=== PATIENT | male | born 1985 | race Caucasian/White ===

== ENCOUNTER 2020-04-24 10:04 | Emergency (ER) | payer BC, SELFPAY ==
[2020-04-24 10:24] VITALS: BP 132/80; PULSE 96; RESP 16; TEMP 37; O2SAT 98; BMI 23.0
--- NOTE | 2020-04-24 12:03 | XR_ITS ---
WS: [id number] PORTABLE CHEST HISTORY: fevers, cough COMPARISON: 02/11/2013 Lungs are clear and well expanded. No pleural effusion or pneumothorax. Cardiac size: Normal. Mediastinum/Aorta: Normal mediastinum. No osseous abnormality seen. XR/XR chest 1V portable [id number] IMPRESSION: Unremarkable portable chest.
--- NOTE | 2020-04-24 12:06 | ED_ITS ---
HPI - General Adult General: Chief complaint: Nausea/Vomiting/Diarrhea Stated complaint: RECENT FEVER Time Seen by Provider: 04/24/20 10:08 Source: patient and family Mode of arrival: ambulatory Limitations: no limitations History of Present Illness: HPI narrative: Patient is a 34-year-old male who presents to ED today with multiple medical complaints. Patient tells me several days ago he was seen by his PCP Dr. Willard for not feeling well . At the time he was complaining of some upper abdominal pain, nausea, vomiting, diarrhea. He had recently been placed on some Bactrim for a possible abscess. Dr. Willard discontinued the Bactrim and told them it possibly could be some bad food exposure and prescribed the patient Zofran. Patient tells me since the visit he has continued to not improve. He was seen again by their office staff and had vitals performed which showed an oxygen saturation of 93%. Apparently they were concerned about this and sent patient to the emergency department for evaluation. Patient tells me he is no longer having diarrhea. He actually reports constipation stating he has not had a bowel movement in 3 days. He is still complaining of upper abdominal pain and describes as indigestion . He reports some dry heaving earlier this morning. Significant other with patient describes low-grade fevers mainly throughout his illness but has had a temperature as high as 101. He states his bilateral legs hurt. He complains of a headache and diffuse body aches/pains. They state Dr. Willard's office mentioned wanting him tested for COVID. Patient has no known PMH and currently takes no medications. Associated symptoms: Reports headache(s), malaise, nausea and vomiting; Deny chest pain, dyspnea, rash, palpitations or syncope Review of Systems Const: Reports: fever(s), chills, body aches, change in appetite, fatigue and malaise; Denies: change in weight Eyes: Denies: change in vision, blurry vision, photophobia, floaters or seeing flashes ENMT: Denies: throat pain, enlarged tonsils, odynophagia, swelling of lips/tongue, oral sores, dental pain, ear or mastoid pain, tinnitus, nasal discharge, nasal congestion or sinus pain Card: Denies: chest pain, palpitations, irregular heart rhythm, edema, swelling of feet/ankles, lightheadedness, syncope, pre-syncope, dyspnea on exertion, orthopnea, leg pain with exertion or acrocyanosis Resp: Reports: productive cough and chest congestion; Denies: dyspnea, non-productive cough, change in phlegm color or hemoptysis GI: Reports: abdominal pain, nausea, vomiting, diarrhea and constipation (x 3 days); Denies: hematemesis, fecal incontinence, rectal swelling, hematochezia, melena or white/light colored stool : Denies: flank pain, difficulty urinating, dysuria, urinary frequency, urinary urgency or urinary hesitancy Musc: Denies: neck pain, back pain, extremity pain (bilateral LEs), extremity swelling, joint pain or joint swelling Skin/Breast: Denies: rash Neuro: Reports: headache(s); Denies: numbness in extremities, weakness in extremities, sensory changes, lack of coordination, dizziness or Slurred speech present Physical Exam Const: COMMON NORMALS: average body habitus, patient oriented x3, no limitations, healthy appearing, alert and well nourished GENERAL APPEARANCE: cooperative ORIENTATION/CONSCIOUSNESS: Yes oriented to person, Yes oriented to place and Yes oriented to time OTHER: looks like he doesn't feel well HENMT: COMMON NORMALS: normocephalic, atraumatic, hearing grossly normal bilaterally, external ears normal, EAC's normal, TM's normal bilaterally, Normal external nose present, Normal nasal mucous membranes and turbinates present, moist oral mucous membranes, oropharynx normal, dentition normal and gingiva normal HEAD & SCALP: normal to inspection, normocephalic and atraumatic FACE & SINUS: normal facial exam and sinuses nontender NOSE: Normal external nose present and Normal nasal mucous membranes and turbinates present EXTERNAL EAR: Yes external ears normal EXTERNAL AUDITORY CANAL: EAC's normal TYMPANIC MEMBRANE: TM's normal bilaterally MOUTH: Normal oral and palatal mucosa present, lip normal and tongue normal THROAT: posterior oropharynx normal, tonsils normal and uvula midline Eye: COMMON NORMALS: Equal, round and reactive pupils present, EOMs intact bilaterally, conjunctivae normal and no scleral icterus CONJUNCTIVA: Yes conjunctivae normal PUPIL: Yes Equal, round and reactive pupils present Neck/C-Spine: COMMON NORMALS: full ROM, no lymphadenopathy and no meningeal signs Resp: COMMON NORMALS: normal respiratory effort and clear to auscultation bilaterally AUSCULTATION: clear to auscultation bilaterally Cardio: COMMON NORMALS: regular rate and regular rhythm RATE: regular rate RHYTHM: regular rhythm GI: COMMON NORMALS: Normal to inspection, nondistended, normoactive bowel sounds present, Soft to palpation, No hepatosplenomegaly present and no masses PALPATION: Yes Soft to palpation, Yes Tenderness to palpation present (GI) (mild epigastric) and Yes No hepatosplenomegaly present : COMMON NORMALS: Yes no CVA tenderness BLADDER/KIDNEY EXAM: Yes no CVA tenderness Back/Pelvis: COMMON NORMALS: no CVA tenderness Extremity: COMMON NORMALS: normal to inspection and full ROM GENERAL: Yes normal exam except as noted Neuro: MIGUEL COMA SCALE: document GCS findings [place] coma scale eye opening: Spontaneous [place] coma scale verbal response: Orientated Miguel coma scale motor response: Obey commands Miguel coma scale total score: 15 COMMON NORMALS: patient oriented x3, moves all extremities, no focal motor deficits, no sensory deficits noted and gait normal SENSORIUM/ORIENTATION: Yes alert, Yes oriented to person, Yes oriented to place and Yes oriented to time MENINGEAL SIGNS: Yes no meningeal signs Skin: COMMON NORMALS: no rashes or lesions noted GENERAL SKIN EXAM: no rashes or lesions noted Course Vital Signs: Vital signs: Vital Signs Temperature 98.6 F 04/24/20 10:24 Pulse Rate 88 04/24/20 15:16 Respiratory Rate 18 04/24/20 15:16 Blood Pressure 124/67 04/24/20 15:16 Pulse Oximetry 96 04/24/20 15:16 MDM - General Adult MDM Narrative: Medical decision making narrative: Patient's labs showing mild hyponatremia, mildly elevated LFTs, and thrombocytopenia which makes me highly suspicious for tickborne illness. Patient symptoms would be consistent with this diagnosis as well. I did go ahead and test patient for COVID. He is aware that tick panel and COVID testing will take 2 to 3 days to return. He was encouraged to quarantine until he gets negative COVID results. I will place patient on doxycycline at this time. Recommend close follow-up with Dr. Willard's office. Strict return to ED precautions given. Lab Data: Labs: Lab Results 04/24/20 04/24/20 04/24/20 Range/Units 12:22 12:28 12:28 WBC 5.5 (4.0-10.0) 10^3/ uL RBC 4.84 (4.1-5.3) 10^6/u L Hgb 15.2 (11.7-16.6) g/dL Hct 43.6 (42.0-52.0) % MCV 90.1 (80-94) fL MCH 31.4 (28.0-34.0) pg MCHC 34.9 (30.0-36.0) g/dL RDW 11.9 L (12.1-15.1) % Plt Count 101 L (130-400) 10^3/c mm MPV 11.6 H (7.4-10.4) fL Neut % (Auto) 52.8 % Lymph % (Auto) 32.8 % Carolina % (Auto) 13.1 % Eos % (Auto) 0.2 % Baso % (Auto) 0.4 % Neut # (Auto) 2.89 (1.8-7.7) 10^3/u L Lymph # (Auto) 1.8 (0.8-4.8) 10^3/u L Carolina # (Auto) 0.7 (0.2-0.9) 10^3/u L Eos # (Auto) 0.0 (0.0-0.8) 10^3/u L Baso # (Auto) 0.0 (0.0-0.1) 10^3/u L Nucleated RBC % (a uto) 0 % Nucleated RBCs # 0.0 /100WBC Sodium 127 L (136-145) mmol/L Potassium 3.8 (3.5-5.1) mmol/L Chloride 89 L (98-107) mmol/L Carbon Dioxide 24 (22-29) mmol/L Anion Gap 17.8 (5-19) BUN 12 (6-20) mg/dL Creatinine 0.7 (0.7-1.2) mg/dL GFR Calculation 129.1 (90-130) mL/min Glucose 114 (65-115) mg/dL Calculated Osmolal ity 261 L (285-295) mOsm/k g Lactic Acid (0.5-2.2) mmol/L Calcium 8.1 L (8.5-10.5) mg/dL Total Bilirubin 0.5 (0.15-1.2) mg/dL AST 41 H (0-40) U/L ALT 51 H (0-41) U/L Alkaline Phosphata se 53 (40-130) IU/L Creatine Kinase 40 (39-308) U/L C-Reactive Protein 46.9 H (0.0-4.9) mg/L Total Protein 7.0 (6.6-8.7) g/dL Albumin 3.9 (3.5-5.2) g/dL Globulin 3.1 (1.3-4.6) g/dL Lipase 18 (13-60) U/L Urine Color (Yellow) Urine Appearance (CLEAR) Urine pH (5-7) Ur Specific Gravit y (1.005-1.030) Urine Protein (Negative) Urine Glucose (UA) (Normal) Urine Ketones (Negative) Urine Blood (Negative) Urine Nitrate (Negative) Urine Bilirubin (NEGATIVE) Urine Urobilinogen (Negative) mg/dL Ur Leukocyte Humaira ase (Negative) Influenza Type A A g Negative (Negative) Influenza Type B A g Negative (Negative) 04/24/20 04/24/20 Range/Units 12:28 13:52 WBC (4.0-10.0) 10^3/ uL RBC (4.1-5.3) 10^6/u L Hgb (11.7-16.6) g/dL Hct (42.0-52.0) % MCV (80-94) fL MCH (28.0-34.0) pg MCHC (30.0-36.0) g/dL RDW (12.1-15.1) % Plt Count (130-400) 10^3/c mm MPV (7.4-10.4) fL Neut % (Auto) % Lymph % (Auto) % Carolina % (Auto) % Eos % (Auto) % Baso % (Auto) % Neut # (Auto) (1.8-7.7) 10^3/u L Lymph # (Auto) (0.8-4.8) 10^3/u L Carolina # (Auto) (0.2-0.9) 10^3/u L Eos # (Auto) (0.0-0.8) 10^3/u L Baso # (Auto) (0.0-0.1) 10^3/u L Nucleated RBC % (a uto) % Nucleated RBCs # /100WBC Sodium (136-145) mmol/L Potassium (3.5-5.1) mmol/L Chloride (98-107) mmol/L Carbon Dioxide (22-29) mmol/L Anion Gap (5-19) BUN (6-20) mg/dL Creatinine (0.7-1.2) mg/dL GFR Calculation (90-130) mL/min Glucose (65-115) mg/dL Calculated Osmolal ity (285-295) mOsm/k g Lactic Acid 1.4 (0.5-2.2) mmol/L Calcium (8.5-10.5) mg/dL Total Bilirubin (0.15-1.2) mg/dL AST (0-40) U/L ALT (0-41) U/L Alkaline Phosphata se (40-130) IU/L Creatine Kinase (39-308) U/L C-Reactive Protein (0.0-4.9) mg/L Total Protein (6.6-8.7) g/dL Albumin (3.5-5.2) g/dL Globulin (1.3-4.6) g/dL Lipase (13-60) U/L Urine Color Yellow (Yellow) Urine Appearance Clear (CLEAR) Urine pH 5 (5-7) Ur Specific Gravit y 1.020 (1.005-1.030) Urine Protein Neg (Negative) Urine Glucose (UA) Norm (Normal) Urine Ketones 2+ H (Negative) Urine Blood Neg (Negative) Urine Nitrate Negative (Negative) Urine Bilirubin Neg (NEGATIVE) Urine Urobilinogen 1 H (Negative) mg/dL Ur Leukocyte Humaira ase Negative (Negative) Influenza Type A A g (Negative) Influenza Type B A g (Negative) Imaging Data^: CXR: Radiologist's impression: [address] [address] XRay Report Signed Patient: Benjamin Barnett Unit #: [id number] : 1985 Age/Sex: 34 / M ADM Date: 04/24/20 Loc: ER Room/Bed: Attending Dr: Ordering Provider/Ordering MD: Rakel Alvarez Date of Service: 04/24/20 Procedure(s): XR chest 1V portable [id number] Accession Number(s): [id number] Report Number: [id number] WS: [id number] PORTABLE CHEST HISTORY: fevers, cough COMPARISON: 02/11/2013 Lungs are clear and well expanded. No pleural effusion or pneumothorax. Cardiac size: Normal. Mediastinum/Aorta: Normal mediastinum. No osseous abnormality seen. XR/XR chest 1V portable [id number] IMPRESSION: Unremarkable portable chest. Dictated By: Muna Montero DO Signed By: Muna Montero DO Signed Date/Time: 04/24/20 1231 DD/ 1231 Discharge Plan Discharge Patient Disposition: Home, Self-Care Clinical Impression: At high risk for tick borne illness Condition: Stable Prescriptions: New doxycycline monohydrate 100 mg capsule 100 mg PO Q12H 14 Days Qty: 28 RF: 0 Discharge Orders: Discharge Order (Routine); Ordered 04/24/20 Ordered By: Rakel Alvarez Activity Restrictions/Additional Instructions: As we discussed I think patient symptoms are highly suspicious for a tickborne illness. I have placed him on doxycycline to cover for this. We have sent out a tick panel in addition to testing the patient for COVID. These tests will take 2 to 3 days to get results. Patient needs to quarantine until he has a negative COVID result. He needs to return to the emergency department at anytime for worsening symptoms, worsening headache, uncontrollable fevers, any other concerns you may have. Please follow-up closely with his primary care provider at the end of the week or early next week for reevaluation. Discharge Date/Time: 04/24/20 15:18 Coding Level of Care Code ED [facility] for [facility] Fwd Exam Comprehensive
[2020-04-24] MEDS: promethazine 25 mg/mL SDV 1 mL IM (12:36)
[2020-04-24] MEDS: sodium chloride 0.9% 1,000 ML 999 ML IV (12:37)
[2020-04-24] MEDS: acetaminophen 500 mg Tablet 1000 MG PO (12:38)
[2020-04-24 12:47] LABS: Basophils % 0.4 %; Eosinophils % 0.2 %; Hematocrit 43.6 % (42.0-52.0); Hemoglobin 15.2 g/dL (11.7-16.6); Lymphocytes # 1.8 10^3/uL (0.8-4.8); Lymphocytes % 32.8 %; Mean Corpuscular HGB Conc 34.9 g/dL (30.0-36.0); Mean Corpuscular Hemoglobin 31.4 pg (28.0-34.0); Mean Corpuscular Volume 90.1 fL (80-94); Mean Platelet Volume 11.6 fL (7.4-10.4); Monocytes # 0.7 10^3/uL (0.2-0.9); Monocytes % 13.1 %; Neutrophils # 2.89 10^3/uL (1.8-7.7); Neutrophils % 52.8 %; Nucleated Red Blood Cells % 0 %; Platelet Count 101 10^3/cmm (130-400); Red Blood Count 4.84 10^6/uL (4.1-5.3); Red Cell Distribution Width 11.9 % (12.1-15.1); White Blood Count 5.5 10^3/uL (4.0-10.0)
[2020-04-24] MEDS: lidocaine 2% viscous 15 ML, aluminum-mag hydrox-simethicon 30 ML, sucralfate oral liq 1 GM PO (12:49)
[2020-04-24 13:05] LABS: Influenza A by IFA Negative (Negative); Influenza B by IFA Negative (Negative)
[2020-04-24 13:11] LABS: Lactic Sepsis W/Reflex 1.4 mmol/L (0.5-2.2); Slide Review Slide Review Perform
[2020-04-24 13:12] LABS: Alanine Aminotransferase 51 U/L (0-41); Albumin Level 3.9 g/dL (3.5-5.2); Alkaline Phosphatase 53 IU/L (40-130); Anion Gap 17.8 (5-19); Aspartate Amino Transferase 41 U/L (0-40); Blood Urea Nitrogen 12 mg/dL (6-20); C Reactive Protein 46.9 mg/L (0.0-4.9); Calcium 8.1 mg/dL (8.5-10.5); Carbon Dioxide 24 mmol/L (22-29); Chloride 89 mmol/L (98-107); Creatine Phosphokinase 40 U/L (39-308); Globulin 3.1 g/dL (1.3-4.6); Glomerular Filtration Rate 129.1 mL/min (90-130); Glucose 114 mg/dL (65-115); Lipase 18 U/L (13-60); Osmolality Calculated 261 mOsm/kg (285-295); Potassium 3.8 mmol/L (3.5-5.1); Sodium 127 mmol/L (136-145); Total Bilirubin 0.5 mg/dL (0.15-1.2)
[2020-04-24 14:01] LABS: Add Urine Microscopic? NO
[2020-04-24 14:07] LABS: Protein Urine Neg (Negative); Urine Appearance Clear (CLEAR); Urine Color Yellow (Yellow); pH Urine 5 (5-7)
[2020-04-24 14:08] LABS: Bilirubin Urine Neg (NEGATIVE); Blood Urine Neg (Negative); Glucose Urine UA Norm (Normal); Ketones Urine 2+ (Negative); Leukocyte Esterase Urine Negative (Negative); Nitrate Urine Negative (Negative); Urobilinogen Urine 1 mg/dL (Negative)
[2020-04-24 14:09] VITALS: RESP 18
[2020-04-24] MEDS: morphine 4 mg/mL SDV 1 mL IVP (14:09)
[2020-04-24 15:16] VITALS: BP 124/67; PULSE 88; RESP 18; O2SAT 96
[2020-04-25 12:49] LABS: Lyme AB Screen <0.90 index
[2020-04-25 19:00] LABS: Quest SARS-CoV-2 RNA DETECTED (NOT DETECTED)
[2020-04-27 17:30] LABS: RMSF IGG NOT DETECTED; RMSF IGM NOT DETECTED
[2020-04-30 17:39] LABS: E. Chaffeensis AB IGM <1:20; Interpretation PAST INFECTION
== END 2020-04-24 15:18 | disposition home or self-care (01) ==
PROVIDERS: Emergency Provider Physician Assistant
DX: R11.2 Nausea with vomiting, unspecified (principal); R19.7 Diarrhea, unspecified; R50.9 Fever, unspecified; U07.1 COVID-19
CPT/HCPCS: 12345; 36415; 71045; 80053; 81003; 82550; 83605; 83690; 85025; 86140; 86618; 86666; 86757; 87635; 87804; 96361; 96372; 96374; 99283; J2270; J2550; J7030